=== PATIENT | male | born 1980 | race Two or more races ===

== ENCOUNTER 2016-07-25 12:21 | Emergency (ER) | payer MEDICAID ==
[~2016-07-25] VITALS: Ht 172.7 cm; Wt 88.5 kg
[2016-07-25] MEDS ORDERED: NKM (12:33)
[2016-07-25 12:51] VITALS: BP 132/83
[2016-07-25 13:37] VITALS: BP 132/83
--- NOTE | 2016-07-25 18:48 | Cardiology Report ---
APPROVED REPORT EKG Measurement Heart [id number] Normal sinus rhythm Cannot rule out Anterior infarct, age undetermined Abnormal ECG
--- NOTE | 2016-07-25 22:26 | Emergency Room Report ---
History of Present Illness General Chief Complaint: Chest Pain Source: Patient Present Illness HPI The patient is a 35-year-old male presenting for right-sided chest pain which began 2 days prior. The patient states that he needed to move his car and never returned Allergies: Coded Allergies: NO KNOWN ALLERGIES (Unverified Allergy, Unknown, 07/12/15) Patient History Past Medical History: see triage record Pertinent Family History: none Reviewed Nursing Documentation: PMH: Agreed, PSxH: Agreed Nursing Documentation-PMH Past Medical History: No History, Except For Physical Exam Vital Signs Date Time Temp Pulse Resp B/P Pulse Ox O2 Delivery O2 Flow Rate FiO2 07/25/16 12:30 97.5 87 20 132/83 97 Room Air Medical Decision Making PA Attestation Dr. Jung is my supervising physician. Patient management was discussed with my supervising physician Diagnostic Impression: Primary Impression: Chest pain ER Course The patient is a 35-year-old male presenting for right-sided chest pain which began 2 days prior. The patient states that he needed to move his car and never returned EKG Diagnostic Results EP Interpretation: NSR. No acute changes Rate: normal - 82 Rhythm: NSR ST Segments: no acute changes PA Scribe Text EKG was reviewed and read with my supervising physician. No acute ST segment changes are seen. Normal rate and rhythm. No acute changes. Last Vital Signs Date Time Temp Pulse Resp B/P Pulse Ox O2 Delivery O2 Flow Rate FiO2 07/25/16 13:37 97.5 20 132/83 97 Room Air 07/25/16 12:51 87 Disposition: ELOPED Condition: Unknown Referrals: [facility],REFERRING (PCP) SKINNY WOODWARD Jul 25, 2016 22:26
== END 2016-07-25 13:25 | disposition left against medical advice (07) ==
LOC: EMR 13:00
DX: R07.9 Chest pain, unspecified (principal); Z53.21 Procedure and treatment not carried out due to patient leaving prior to being seen by health care provider
CPT/HCPCS: 93005; 99283

== ENCOUNTER 2016-08-27 12:40 | Emergency (ER) | payer MEDICAID ==
[~2016-08-27] VITALS: Ht 170.2 cm; Wt 92.5 kg
[~2016-08-27 12:40] MED LIST: NKM
[2016-08-27 12:51] VITALS: BP 106/90
[2016-08-27] MEDS ORDERED: AUGMENTIN 875-1 EAC1 ORAL (12:52)
[2016-08-27] MEDS ORDERED: PROMETH-CODEIN 65 ML PO (12:52)
--- NOTE | 2016-08-27 13:35 | Emergency Room Report ---
History of Present Illness General Chief Complaint: Upper Respiratory Illness Source: Patient Present Illness HPI 35-year-old male presents emergency department concerned that he might have pneumonia, he is complaining of productive cough x4 days. Patient has been treated with Augmentin for sinusitis and has had nasal congestion with moderate rhinorrhea x2 weeks. Patient denies fevers or chills. Patient states he is coughing up thick yellow phlegm. Patient denies wheezing, recent ill contacts or travel. Patient states that he is currently taking time off to study for his step 1 exam and he is concerned that his sinusitis has turned into pneumonia due to increase in phlegm. Patient denies history of immunocompromise or recent hospitalization. He is up-to-date with vaccinations. he denies history of smoking, asthma, or COPD. Denies CP, Palpitations, LOC, AMS, dizziness, Changes in Vision, Sensation, paresthesias, or a sudden severe headache. Allergies: Coded Allergies: NO KNOWN ALLERGIES (Unverified Allergy, Unknown, 07/12/15) Patient History Past Medical History: see triage record Past Surgical History: none Pertinent Family History: none Immunizations: UTD Reviewed Nursing Documentation: PMH: Agreed, PSxH: Agreed Review of Systems All Other Systems: negative except mentioned in HPI Physical Exam Vital Signs Date Time Temp Pulse Resp B/P Pulse Ox O2 Delivery O2 Flow Rate FiO2 08/27/16 12:44 98.4 108 20 106/90 97 Room Air Sp02 EP Interpretation: reviewed, normal General Appearance: no apparent distress, alert, GCS 15, non-toxic Head: normocephalic, atraumatic Eyes: bilateral eye PERRL, bilateral eye normal inspection ENT: hearing grossly normal, normal pharynx, no angioedema, normal voice, TMs + canals normal, nasal congestion - moderate clear rhinorrhea present in the nares bilaterally, no purulent exudate. Neck: full range of motion, no meningismus, supple/symm/no masses Respiratory: chest non-tender, lungs clear, normal breath sounds, speaking full sentences Cardiovascular #1: regular rate, rhythm, no edema Rectal: deferred Genitourinary: normal inspection, no CVA tenderness Musculoskeletal: back normal, gait/station normal, normal range of motion, non- tender, no calf tenderness Neurologic: alert, oriented x3, responsive, motor strength/tone normal, sensory intact, speech normal Psychiatric: judgement/insight normal, memory normal, mood/affect normal, no suicidal/homicidal ideation Skin: normal color, no rash, warm/dry, well hydrated Lymphatic: no adenopathy Medical Decision Making PA Attestation Dr. Jung is my supervising Physician whom patient management has been discussed with. Diagnostic Impression: Primary Impression: Upper respiratory infection with cough and congestion Additional Impression: Nasal congestion with rhinorrhea ER Course 35-year-old male presents emergency department concerned that he might have pneumonia, he is complaining of productive cough x4 days. Patient has been treated with Augmentin for sinusitis and has had nasal congestion with moderate rhinorrhea x2 weeks. Patient denies fevers or chills. Patient states he was rx 'd with robitussin which made his sx's worse, and is now coughing up thick yellow phlegm. Patient denies wheezing, recent ill contacts or travel. Patient states that he is currently taking time off to study for his step 1 exam and he is concerned that his sinusitis has turned into pneumonia due to increase in phlegm. Patient denies history of immunocompromise or recent hospitalization. Ddx considered but are not limited to URI, pneumonia, PE, strep pharyngitis, meningitis. Vital signs: Pt. is afebrile, the remaining VS are WNL H&PE are most consistent with URI- no meningeal signs, oropharynx is not involved, no evidence of bacterial infection at this time. Lungs are clear bilaterally, no wheezes or rales noted. moderate clear rhinorrhea with absence of fevers/chills suggests post nasal drainage. ORDERS: none required at this time, the diagnosis is clinical ED INTERVENTIONS: None required at this time. DISCHARGE: At this time pt. is stable for d/c to home. Will provide printed patient care instructions, and any necessary prescriptions. Care plan and follow up instructions have been discussed with the patient prior to discharge. Last Vital Signs Date Time Temp Pulse Resp B/P Pulse Ox O2 Delivery O2 Flow Rate FiO2 08/27/16 12:51 108 20 Room Air 08/27/16 12:51 98.4 106/90 97 Disposition: HOME, SELF-CARE Condition: Stable Scripts Benzonatate* (TESSALON PERLVic*) 100 Mg Capsule 100 MG ORAL THREE TIMES A DAY for 7 Days, #21 PERLE Prov: Brianne Crum 08/27/16 Loratadine (CLARITIN) 10 Mg Tablet 10 MG ORAL DAILY for 14 Days, #14 TAB Prov: Brianne Crum 08/27/16 Guaifenesin (Guaifenesin) 1,200 Mg Tab.er.12h 1200 MG PO BID for 7 Days, #14 TAB Prov: Brianne Crum 08/27/16 Patient Instructions: Upper Respiratory Infection, Adult Additional Instructions: Take medications as directed. Follow up with PCP in 3-5 days Return sooner to ED if new symptoms occur, or current symptoms become worse. - Please note that this Emergency Department Report was dictated using [email or web address] technology software, occasionally this can lead to erroneous entry secondary to interpretation by the dictation equipment. Brianne Crum Aug 27, 2016 13:35
[2016-08-27] MEDS ORDERED: CLARITIN10 MG ORAL (13:37)
[2016-08-27] MEDS ORDERED: GUAIFENESIN1200 MG PO (13:37)
[2016-08-27] MEDS ORDERED: TESSALON PERLE100 MG ORAL (13:37)
[2016-08-27 13:46] VITALS: BP 116/78
== END 2016-08-27 13:46 | disposition home or self-care (01) ==
LOC: EMR 13:30
DX: J06.9 Acute upper respiratory infection, unspecified (principal); R09.81 Nasal congestion
CPT/HCPCS: 99284

== ENCOUNTER 2018-10-03 04:45 | Emergency (ER) | payer MEDICAID ==
[~2018-10-03] VITALS: Ht 172.7 cm; Wt 90.3 kg
[~2018-10-03 04:45] MED LIST changes: +AUGMENTIN 875-1 EAC1 ORAL; +CLARITIN10 MG ORAL; +GUAIFENESIN1200 MG PO; +PROMETH-CODEIN 65 ML PO; +TESSALON PERLE100 MG ORAL
--- NOTE | 2018-10-03 05:04 | NUR ---
ED Nurse Note: pt came to ed from home c/o LLQ abd pain 10/10 for about an hour. pt states yesterday at 2100 he had loose stool and earlier today stool was normal. per pt he took tylenol for pain and it did not help.
[2018-10-03 05:05] VITALS: BP 130/91
--- NOTE | 2018-10-03 05:05 | Emergency Room Report ---
History of Present Illness General Chief Complaint: Abdominal Pain Source: Patient Present Illness HPI This is a 37-year-old male with no past medical history. He presents with chief complaint of left lower quadrant pain. Onset was around 2 hours ago. It was mild initially but then it became severe pain about an hour ago. Pain is localized the left lower quadrant. No radiation. Pain is sharp. 8 out of 10. Has nausea but no vomiting. No diarrhea. Never had this problem before. No hematuria. Nothing made it better. Nothing made it worse. Allergies: Coded Allergies: NO KNOWN ALLERGIES (Unverified Allergy, Unknown, 07/12/15) Patient History Past Medical History: none, see triage record, old chart reviewed Past Surgical History: none Pertinent Family History: none Social History: Denies: smoking Immunizations: other Reviewed Nursing Documentation: PMH: Agreed; PSxH: Agreed Review of Systems Eye: Denies: eye pain, blurred vision ENT: Denies: ear pain, nose congestion, throat swelling Respiratory: Denies: cough, shortness of breath Cardiovascular: Denies: chest pain, palpitations Gastrointestinal: Reports: abdominal pain; Denies: diarrhea, nausea, vomiting Musculoskeletal: Denies: back pain, joint pain Skin: Denies: rash Neurological: Denies: headache, numbness Endocrine: Denies: increased thirst, increased urine Hematologic/Lymphatic: Denies: easy bruising All Other Systems: negative except mentioned in HPI Physical Exam Vital Signs Date Time Temp Pulse Resp B/P (MAP) Pulse Ox O2 Delivery O2 Flow Rate FiO2 10/03/18 04:51 97.5 80 16 130/91 98 Room Air vitals normal Sp02 EP Interpretation: reviewed, normal General Appearance: well appearing, no apparent distress, alert Head: normocephalic, atraumatic Eyes: bilateral eye PERRL, bilateral eye EOMI ENT: hearing grossly normal, normal pharynx Neck: full range of motion, supple, no meningismus Respiratory: chest non-tender, lungs clear, normal breath sounds Cardiovascular #1: regular rate, rhythm, no murmur Gastrointestinal: normal bowel sounds, non tender, no mass, no organomegaly, no bruit, non-distended Musculoskeletal: back normal, gait/station normal, normal range of motion Neurologic: alert, oriented x3 Psychiatric: mood/affect normal Skin: warm/dry Medical Decision Making Diagnostic Impression: Primary Impression: Left ureteral stone Additional Impression: UTI (urinary tract infection) Qualified Codes: N30.00 - Acute cystitis without hematuria ER Course Patient presents with left lower quadrant pain and has a ureteral stone on CT. Urinalysis may show early urinary tract infection with few bacteria and WBC. Rocephin given here. No evidence of pyelonephritis or sepsis. Labs unremarkable. Patient pain is well-controlled. We'll discharge home. Lab Results Impression labs normal CT/MRI/US Diagnostic Results CT/MRI/US Diagnostic Results : Imaging Test Ordered: CT abdomen and pelvis Impression Read by radiologist. Mild left hydronephrosis with elongated proximal for millimeter calculus versus 2 adjacent smaller stones. This is at the ureteropelvic junction. Incidental finding of right middle lobe nodule. Last Vital Signs Date Time Temp Pulse Resp B/P (MAP) Pulse Ox O2 Delivery O2 Flow Rate FiO2 10/03/18 04:51 97.5 80 16 130/91 98 Room Air Status: improved Disposition: HOME, SELF-CARE Condition: Stable Scripts Ibuprofen* (MOTRIN*) 600 Mg Tablet 600 MG ORAL THREE TIMES A DAY, #30 TAB 0 Refills Prov: Jairo Fall MD 10/03/18 Cephalexin* (KEFLEX*) 500 Mg Capsule 500 MG ORAL TID, #21 CAP Prov: Jairo Fall MD 10/03/18 Hydrocodone/Acetaminophen 5-325* (HYDROCODONE/ACETAMINOPHEN 5-325*) 1 Each Tablet 1 TAB ORAL Q6H PRN for For Pain, #15 TAB 0 Refills Prov: Jairo Fall MD 10/03/18 Tamsulosin HCl (Flomax) 0.4 Mg Cap.er.24h 0.4 MG ORAL DAILY, #14 CAP Prov: Jairo Fall MD 10/03/18 Additional Instructions: Increase fluids. Follow-up with your doctor in 7 days. Return for increasing pain, fever, nausea vomiting or any concern. Jairo Fall MD Oct 03, 2018 05:05
[2018-10-03] MEDS ORDERED: Morphine Sulfate 4mg/ml Inj (IV USE ONLY) IVP ONE (05:15)
[2018-10-03] MEDS ORDERED: Ketorolac 30mg Inj IV ONE (05:15)
[2018-10-03 05:19] LABS: BASOPHILS % (AUTO) 0.7 % (0.0-2.0); EOSINOPHILS % (AUTO) 1.6 % (0.0-3.0); HEMOGLOBIN 14.3 G/DL (14.2-18.0); LYMPHOCYTES % (AUTO) 27.1 % (20.0-45.0); MEAN CORPUSCULAR VOLUME 89 FL (80-99); MONOCYTES % (AUTO) 5.3 % (1.0-10.0); NEUTROPHILS % (AUTO) 65.3 % (45.0-75.0); PLATELET COUNT 196 K/UL (150-450); RED BLOOD COUNT 4.75 M/UL (4.70-6.10); RED CELL DISTRIBUTION WIDTH 11.7 % (11.6-14.8); WHITE BLOOD COUNT 13.4 K/UL (4.8-10.8)
--- NOTE | 2018-10-03 05:23 | NUR ---
ED Nurse Note: urine sent to lab
--- NOTE | 2018-10-03 05:27 | NUR ---
ED Nurse Note: pt went to ct
[2018-10-03 05:31] LABS: ANION GAP 11 mmol/L (5-15); BLOOD UREA NITROGEN 18 mg/dL (7-18); CARBON DIOXIDE 27 MMOL/L (21-32); CHLORIDE 104 MMOL/L (98-107); POTASSIUM 3.6 MMOL/L (3.5-5.1); SODIUM 142 MMOL/L (136-145)
[2018-10-03 05:35] LABS: APPEARANCE,URINE CLOUDY; BILIRUBIN, URINE NEGATIVE (NEGATIVE); COLOR,URINE YELLOW; GLUCOSE, URINE (UA) NEGATIVE (NEGATIVE); KETONES,URINE 1+ (NEGATIVE); LEUKOCYTE ESTERASE ,URINE 2+ (NEGATIVE); NITRITE,URINE POSITIVE (NEGATIVE); PH,URINE 6.5 (4.5-8.0); PROTEIN,URINE 2+ (NEGATIVE); UROBILINOGEN,URINE 1 MG/DL (0.0-1.0)
[2018-10-03] MEDS ORDERED: cefTRIAXone 1 GM in NS 55 ML IVPB ONE (06:00)
[2018-10-03 06:31] VITALS: BP 114/72
[2018-10-03] MEDS ORDERED: IBUPROFEN600 MG ORAL (06:31)
[2018-10-03] MEDS ORDERED: CEPHALEXIN500 MG ORAL (06:31)
[2018-10-03] MEDS ORDERED: FLOMAX0.4 MG ORAL (06:31)
[2018-10-03] MEDS ORDERED: HYDROCODON-ACE1 EA15 ORAL (06:31)
--- NOTE | 2018-10-03 06:35 | NUR ---
ER DISCHARGE NOTE: Patient is cleared to be discharged per ERMD, pt is aox4, on room air, with stable vital signs. pt was given dc and prescription instructions, pt was able to verbalize understanding, pt id band and iv site removed without complications. pt is able to ambulate with steady gait. pt took all belongings.
[2018-10-03 06:36] VITALS: BP 114/72
--- NOTE | 2018-10-03 09:15 | Diagnostic Imaging Report ---
Indication: Abdominal pain for one day Technique: Spiral acquisitions obtained through the abdomen and pelvis. No oral contrast utilized, per emergency room physician request No IV contrast utilized, per emergency room physician request.. Multiplanar reconstructions were generated. Total dose length product 823.42 mGycm. CTDIvol(s) 15.47 mGy. Dose reduction achieved using automated exposure control Comparison: None Findings: There is a 6 x 4 mm calculus, versus 2 adjacent smaller calculi, at the left ureteropelvic junction. This results in mild left hydronephrosis. There is a 2 mm nonobstructive calculus in a left lower pole calyx as well. No right renal or ureteral calculi, right hydronephrosis or hydroureter demonstrated. Lack of IV contrast limits assessment of the renal parenchyma. No gross renal parenchymal mass or cyst demonstrated. The bladder is unremarkable. The prostate is prominent for age, otherwise unremarkable. Normal appendix. No evidence of diverticulosis or diverticulitis. No small bowel distention. No free or loculated intraperitoneal gas or fluid. Distal esophagus, stomach, duodenum are unremarkable. Is a small fat-containing umbilical hernia incidentally noted Lack of IV contrast limits assessment of the other solid organs. The liver, gallbladder, bile ducts, pancreas, spleen, adrenals are unremarkable. No retroperitoneal or mesenteric mass or adenopathy. No pelvic mass or adenopathy. Atelectatic changes or scarring are seen in the lingula and medial right middle lobe. Subpleural 2 mm nodule is seen in the right middle lobe, and another in the right lower lobe. The included lung bases are otherwise clear. The bones are unremarkable. Impression: Positive for 6 x 4 mm calculus, versus 2 adjacent smaller calculi, at the left ureteropelvic junction. This results in mild left hydronephrosis. There is an additional nonobstructive 2 mm calyceal calculus on the left. Basilar lung nodules on the right. No further follow-up necessary if there is no significant smoking history or other risk factors for lung carcinoma. Recommend 6-12 month follow-up if there are significant risk factors This agrees with the preliminary interpretation provided overnight by [facility]erad[facility] service. The CT scanner at [facility] is accredited by the [employer] and the scans are performed using protocols designed to limit radiation exposure to as low as reasonably achievable to attain images of sufficient resolution adequate for diagnostic evaluation.
== END 2018-10-03 06:35 | disposition home or self-care (01) ==
LOC: EMR 04:59
DX: N13.2 Hydronephrosis with renal and ureteral calculous obstruction (principal); N30.00 Acute cystitis without hematuria
CPT/HCPCS: 36415; 74176; 80048; 81003; 85025; 87086; 96361; 96365; 96375; 99284; J0696; J1885; J2270; J2405